=== PATIENT | male | born 1975 | race Caucasian/White ===

== ENCOUNTER 2017-07-20 12:31 | Emergency (ER) | payer SELFPAY ==
[2017-07-20] MEDS ORDERED: HYDROcodone/Acetaminophen 5/325 mg Tablet ONE (13:38)
[2017-07-20] MEDS ORDERED: Acetaminophen 325 MG TAB ONE (13:39)
[2017-07-20] MEDS ORDERED: Ibuprofen 800 MG TAB ONE (13:39)
== END 2017-07-20 13:48 | disposition home or self-care (01) ==
LOC: MADERS 12:31
DX: L03.032 Cellulitis of left toe (principal); L60.0 Ingrowing nail
CPT/HCPCS: 99282

== ENCOUNTER 2018-07-28 16:52 | Emergency (ER) | payer SELFPAY | END 2018-07-28 17:30 | disposition home or self-care (01) | LOC: MADERS 16:52 | DX: H69.91 Unspecified Eustachian tube disorder, right ear (principal); H93.8X1 Other specified disorders of right ear | CPT/HCPCS: 99283 ==

== ENCOUNTER 2019-02-08 20:11 | Emergency (ER) | payer SELFPAY ==
[2019-02-08] MEDS ORDERED: Penicillin V Potassium 250 MG TAB ONE (20:31)
== END 2019-02-08 20:35 | disposition home or self-care (01) ==
LOC: MADERS 20:11
DX: K04.7 Periapical abscess without sinus (principal); K02.9 Dental caries, unspecified
CPT/HCPCS: 99282

== ENCOUNTER 2025-03-31 12:51 | Emergency (ER) | payer SELFPAY ==
[2025-03-31] MEDS ORDERED: Ketorolac Tromethamine 30 MG (1 mL) VIAL ONE (13:57)
== END 2025-03-31 14:09 | disposition home or self-care (01) ==
LOC: MADERS 12:51
DX: S29.011A Strain of muscle and tendon of front wall of thorax, initial encounter (principal); E11.9 Type 2 diabetes mellitus without complications; Z79.84 Long term (current) use of oral hypoglycemic drugs; X50.3XXA Overexertion from repetitive movements, initial encounter; Y93.11 Activity, swimming; Y92.34 Swimming pool (public) as the place of occurrence of the external cause
CPT/HCPCS: 96372; 99283; J1885